=== PATIENT | male | born 1955 | race Native Hawaiian/Other Pacific Islander ===

== ENCOUNTER 2018-10-23 12:32 | Emergency (ER) | payer OTHER ==
[~2018-10-23] VITALS: Ht 177.8 cm; Wt 98.9 kg
[~2018-10-23 12:32] MED LIST: CADUET10 MG/10 M OR; LISI20TA24 PO; SIMV40TA57 PO; VIAGRA50 MG OR
[2018-10-23 14:00] VITALS: BP 142/81; TEMP 98
== END 2018-10-23 14:00 | disposition home or self-care (01) ==
LOC: ED 12:32
DX: M54.5 Low back pain (principal); M51.36 Other intervertebral disc degeneration, lumbar region; X50.1XXA Overexertion from prolonged static or awkward postures, initial encounter
CPT/HCPCS: 99283; J1885